=== PATIENT | male | born 1960 | race Caucasian/White ===

== ENCOUNTER 2024-12-14 10:43 | Day surgery (SDC) | payer BC ==
[2024-12-14] MEDS ORDERED: fentaNYL 100 MCG/2 ML SDV ONE (11:00)
[2024-12-14] MEDS ORDERED: Propofol 200 MG/20 ML SDV ONE (11:00)
[2024-12-14] MEDS: Lactated Ringers 1,000 ML IV SCH (11:08)
[2024-12-14 13:36] VITALS: BP 111/74; PULSE 58
== END 2024-12-14 14:30 | disposition home or self-care (01) ==
LOC: VM.SDS 10:43
PROVIDERS: ATTEND Family Medicine
DX: Z12.11 Encounter for screening for malignant neoplasm of colon (principal); K63.3 Ulcer of intestine; K57.30 Diverticulosis of large intestine without perforation or abscess without bleeding; Z87.19 Personal history of other diseases of the digestive system; Z79.899 Other long term (current) drug therapy
CPT/HCPCS: 45380; J2704; J3010; J7120; 00811